=== PATIENT | male | born 1960 | race Caucasian/White ===

== ENCOUNTER → 2017-09-05 | Outpatient (CLI) | payer OTHER ==
[~2017-09-05] VITALS: Ht 170.2 cm; Wt 76.3 kg
[~2017-09-05] MED LIST: AMBIEN 10 MG TA10 MG PO; ANDROGEL5 GM TD; ASPIR 8181 MG PO; ASPIRIN EC81 M1; ATENOLOL 25 MG25 M1 PO; CRESTOR10 MG; CRESTOR40 MG PO; FERREX 150150 MG PO; FISHOIL; FLONASE 0.05%50 MCG NASAL; LIPITOR 20 MG T20 M1 PO; LOPRESSOR25; LORTAB 5 MG/5001 TA1 OR; LOVASTAT20 PO; MOBIC15 MG PO; MOM OR; MULTIVITAMINS; NAPROSYN375 MG PO; OMEPRAZOLE40 MG PO; PERCOCET 10-321 EACH PO; PERCOCET 5-3251 EACH PO; PHISOHEX148 ML TP; RELAFEN750 MG PO; RESTORIL15 MG PO; SENOKOT-S1 TA1 OR; TRANSDERM-SCO1 PATC1 TD; TRAZODONE HCL100 MG PO; UNICOMPLEX M TA1 TA1 PO; ZYRTEC PO
--- NOTE | ~2017-09-05 | HPC ---
[facility] [address] [place] [address] PAIN MANAGEMENT CONSULTATION Name: CALIN BERUMEN Room #: REG Christina Glaser#: [id number] Admission: 09/05/17 Attend Phys: Josh Mike DO Discharge: Date of : 58 Report #: [id number] THIS REPORT FOR: //name// CC: Kai Mike DATE OF SERVICE: 09/05/2017 HISTORY OF PRESENT ILLNESS: The patient is a very pleasant 57-year-old gentleman, typically treated for symptomatic cervical radiculopathy, was given epidural injections back in 2013 with excellent improvement of symptoms. I did refer him to Neurosurgery as his symptoms were continuing. He is somewhat lost to follow up. Returns to the pain clinic today. Last visit was greater than 4 years ago. The patient returns noting pain has recurred in the neck, right shoulder and arm. He denies specific antecedent trauma and overuse. Does relate a good 90+ percent relief for greater than a year following prior epidural injections. He did follow up with Dr. Gregory Villa. He ordered multiple diagnostic studies including cervical myelogram. This was accomplished on 11/09/2013. I reviewed those findings with the patient today, cervical spondylosis identified with spinal stenosis seen most prominently at C3-C4 and C4-C5, central to left-sided disk osteophyte complex with cord contact and deformity with lateral recess and neural foraminal narrowing from significant facet degenerative changes, broad-based disk protrusion, greater on the right at C4-C5. Mild retrolisthesis at C5-C6. The patient notes pain is an 8 on a VAS. Does have a history of osteoarthritis in the spine. Notes pain radiates in the neck, shoulder and arm with physical activity. PHYSICAL EXAMINATION: GENERAL: Shows 5 feet 7 inches, 168-pound gentleman, BMI is 26.3 kilograms per meter squared. VITAL SIGNS: Blood pressure is 143/85, pulse = 80s, respirations 16. MUSCULOSKELETAL: Cervical range of motion is limited. Grossly positive Lhermitte's with pain radiating to the right shoulder. Right deltoid and triceps strength is diminished. Right triceps reflex is diminished compared to the left. Hand grasp is symmetric. Tinel's is negative. HEART: Regular rhythmical. LUNGS: Clear. ABDOMEN: Benign. NEUROLOGIC: Gait is tandem. Medical history was reviewed. Medication list was reconciled. He has a history of coronary artery disease. Does take Crestor for dyslipidemia and Tenormin for [facility] [address] [place] [address] PAIN MANAGEMENT CONSULTATION Name: CALIN BERUMEN Sharmila Room #: REG CLI Jailyn#: [id number] Admission: 09/05/17 Attend Phys: Josh Mike DO Discharge: Date of : 58 Report #: [id number] hypertension, omeprazole for gastroesophageal reflux. He discontinued meloxicam due to coronary artery disease and concern for renal function. Symptomatic cervical radiculopathy by clinical exam and history in a gentleman with history of coronary artery disease, relatively contraindicating nonsteroidal anti-inflammatory medications. Excellent relief greater than 90% of symptoms with following cervical epidural injection at last visit. While significant findings noted in the MRI, does not appear to be a surgical candidate at this point. Continued to be physically active. Though participating in PT at this point, is getting to be a little more problematic due to significant cervical radicular pain. ASSESSMENT: Symptomatic cervical radiculopathy by clinical exam and history, comorbidity of coronary artery disease. RECOMMENDATIONS: We will seek authorization for cervical epidural injection under fluoroscopy. <ELECTRONICALLY SIGNED> By: Josh Mike DO 09/07/17 0724 [id number] Josh Mike DO /nt
[2017-09-05 14:38] VITALS: BP 143/85
== END ==
LOC: PAIN 07:43
DX: M54.12 Radiculopathy, cervical region (principal); I25.10 Atherosclerotic heart disease of native coronary artery without angina pectoris

== ENCOUNTER → 2018-08-08 | Outpatient (CLI) | payer OTHER ==
[~2018-08-08] VITALS: Ht 170.2 cm; Wt 74.8 kg
[~2018-08-08] MED LIST changes: +NEXIUM40 MG PO; +ZOLPIDEM TARTRA10 MG PO
--- NOTE | 2018-08-08 09:28 | EKG ---
[address] [address] ELECTROCARDIOGRAM REPORT Name: CALIN BERUMEN Room #: REG CLI [facility]#: [id number] Admission: 08/08/18 Attend Phys: Alberto Castellanos MD, Discharge: Date of : 58 Report #: [id number] THIS REPORT FOR: //name// [facility] Test Date: 2018-08-08 Test Time: 07:53:01 Pat Name: CALIN BERUMEN Department: Room: Gender: M Director Market Intelligence: adan : 1960 Requested By: Dennise Hammond Order Number: [id number] MD: Collin Quijano Measurements Intervals [place] Rate: 63 P: 21 IN: 178 QRS: 5 QRSD: 88 T: 21 QT: 362 QTc: 371 Interpretive Statements Sinus rhythm Normal tracing Compared to ECG 04/13/2011 07:46:30 Sinus tachycardia no longer present Electronically Signed On 08-08-2018 9:28:08 [employer]PER[employer] by Collin Quijano [email or web address] <ELECTRONICALLY SIGNED> By: Collin Quijano MD, [facility] 08/08/18 0928 [id number] [id number] Collin Quijano MD, FACC /EPI
--- NOTE | 2018-08-09 12:54 | O ---
[facility] [place] [address] [place] [address] OPERATIVE REPORT Name: CALIN BERUMEN Room #: REG [facility].#: [id number] Admission: 08/08/18 Attend Phys: Alberto Castellanos MD, Discharge: Date of : 58 Report #: [id number] THIS REPORT FOR: //name// CC: Kai Castellanos DATE OF SERVICE: 08/08/2018 PREOPERATIVE DIAGNOSIS: Gastroesophageal reflux disease. POSTOPERATIVE DIAGNOSES: 1. Gastroesophageal reflux disease. 2. Small hiatal hernia. PROCEDURE PERFORMED: Thorough esophagogastroduodenoscopy (EGD). SURGEON: Alberto Castellanos M.D. PAPER PATTERN FOLDER: None. ANESTHESIA: Monitored anesthesia care. ESTIMATED BLOOD LOSS: None. COMPLICATIONS: None. SPECIMENS: None. INDICATIONS: The patient is a 58-year-old male with a longstanding history of severe GERD that has become medically recalcitrant as of late. As such, indication was for EGD today. DESCRIPTION OF PROCEDURE: After explaining the risks, benefits and alternatives of the procedure with the patient in detail and obtaining consent, the patient was brought to the endoscopy suite supine on the hospital cart. After conducting a thorough timeout procedure verifying correct patient and procedure, the patient was given monitored anesthesia care. Once adequate anesthesia was obtained, his SCDs were hooked up to pneumatic compression device and the Fujinon upper endoscope was used to intubate the oropharynx with ease. The scope was advanced to the second portion of the duodenum where slow careful withdrawal of the scope showed no evidence of duodenitis, gastritis, esophagitis, mass lesions or ulcerations. A retroflexion view of the scope within the gastric lumen did show evidence of a small hiatal hernia. The scope was straightened out, withdrawn in the distal esophagus where we saw evidence of a patulous lower esophageal sphincter, but no other findings of Nunez's changes or abnormalities otherwise were seen. The scope was advanced back into [facility] [address] [place] [address] OPERATIVE REPORT Name: CALIN BERUMEN Room #: REG [facility].#: [id number] Admission: 08/08/18 Attend Phys: Alberto Castellanos MD, Discharge: Date of : 58 Report #: [id number] the gastric lumen where the stomach was fully desufflated. The scope was removed and passed off the field completing the procedure. At the end of the procedure, all instrument, needle and sponge counts were correct. The patient tolerated the procedure without incident, was awakened in the Endoscopy Suite and transitioned to the Recovery Room with no complications. <ELECTRONICALLY SIGNED> By: Alberto Castellanos MD, FACS 08/09/18 1254 [id number] [id number] Alberto Castellanos MD, FACS /nt
== END | disposition home or self-care (01) ==
LOC: GI 06:37
DX: K21.9 Gastro-esophageal reflux disease without esophagitis (principal); K44.9 Diaphragmatic hernia without obstruction or gangrene; I10 Essential (primary) hypertension; E78.00 Pure hypercholesterolemia, unspecified; Z95.1 Presence of aortocoronary bypass graft; Z87.891 Personal history of nicotine dependence; Z98.890 Other specified postprocedural states; Z79.899 Other long term (current) drug therapy
CPT/HCPCS: 62110; 62900

== ENCOUNTER → 2018-08-11 | Outpatient (CLI) | payer OTHER | LOC: RAD 07:54 | DX: K21.0 Gastro-esophageal reflux disease with esophagitis (principal) ==